=== PATIENT | male | born 1960 | race African-American/Black ===

== ENCOUNTER 2022-06-10 13:14 | Emergency (ER) | payer MEDICAID ==
[~2022-06-10] VITALS: Ht 182.9 cm; Wt 82.0 kg
[2022-06-10 13:27] VITALS: BP 112/65
[2022-06-10] MEDS ORDERED: LIDO1ADH16 TP (15:14)
[2022-06-10] MEDS ORDERED: CYCL10TA21 MT (15:14)
[2022-06-10] MEDS ORDERED: ACET-2708 MT (15:14)
== END 2022-06-10 15:40 | disposition home or self-care (01) ==
LOC: ER 13:40
DX: M54.50 Low back pain, unspecified (principal); Z88.7 Allergy status to serum and vaccine
CPT/HCPCS: 99282

== ENCOUNTER 2023-02-21 03:39 | Emergency (ER) | payer MEDICAID ==
[~2023-02-21] VITALS: Ht 180.3 cm; Wt 65.9 kg
[~2023-02-21 03:39] MED LIST: ACET-2708 MT; BENZ1LOZ73 MT; CYCL10TA21 MT; LIDO1ADH16 TP
[2023-02-21 04:13] VITALS: BP 130/57; PULSE 76; RESP 16; TEMP 98.9; O2SAT 100
[2023-02-21] MEDS ORDERED: ERYT1OIN6 EACHEYE (05:28)
== END 2023-02-21 06:09 | disposition home or self-care (01) ==
LOC: ER 03:39
DX: H00.015 Hordeolum externum left lower eyelid (principal)
CPT/HCPCS: 99283